=== PATIENT | male | born 1945 | race Caucasian/White ===

== ENCOUNTER 2020-02-08 12:32 | Inpatient (IN) ==
[2020-02-08] MEDS ORDERED: Naloxone 0.4 MG/ML INJ IVP PRN (19:43)
[2020-02-08] MEDS ORDERED: Ondansetron 4 MG/2 ML VIAL IVP PRN (19:43)
[2020-02-08] MEDS ORDERED: Ringers Solution, Lactated 1,000 ML IVC SCH (21:45)
[2020-02-08] MEDS: Acetaminophen 325 MG TABLET PO PRN (23:55)
[2020-02-09 02:35] LABS: Hematocrit 24.4 % (37.5-50.1); Hemoglobin 7.2 g/dL (12.9-16.9); Mean Corpuscular HGB Conc 29.5 g/dL (31.6-35.5); Mean Corpuscular Hemoglobin 28.6 pg (28.0-33.3); Mean Corpuscular Volume 96.8 fL (83.0-100.0); Mean Platelet Volume 10.9 fL (9.4-12.4); Platelet Count 139 K/mcL (140-400); Red Blood Count 2.52 M/mcL (4.19-5.50); Red Cell Distribution Width 16.9 % (11.5-14.5); White Blood Count 7.9 K/mcL (4.3-11.1)
[2020-02-09 02:42] LABS: INR 1.5; Prothrombin Time 17.5 Seconds (9.4-12.1)
[2020-02-09 03:00] LABS: BUN/Creatinine Ratio 15 (6-26); Blood Urea Nitrogen 16 mg/dL (8-23); Calcium 7.9 mg/dL (8.6-10.3); Carbon Dioxide 22 mEq/L (23-29); Chloride 102 mEq/L (98-107); Glucose 83 mg/dL (70-105); Magnesium 1.9 mg/dL (1.6-2.6); Osmolality,Calculated 282 (280-300); Sodium 136 mEq/L (136-145); eGFR For African Americans > 60 (> 60); eGFR For Non-African Americans > 60 (> 60)
[2020-02-09 03:28] LABS: Anisocytosis 1+ (Not Present); Lymphocytes # 1.4 K/mcL (0.6-4.6); Neutrophils # 5.2 K/mcL (1.6-8.9); Platelet Estimate Slight Decrease (Normal); Reactive Lymphocytes Present (Not Present)
[2020-02-09] MEDS: *HR* Enoxaparin 40 MG/0.4 ML SYRINGE SQ SCH (06:14)
[2020-02-09 07:53] LABS: Phosphorous 2.9 mg/dL (2.7-4.5)
[2020-02-09] MEDS ORDERED: amLODIPine 5 MG TABLET PO SCH (09:00)
[2020-02-09] MEDS: Finasteride 5 MG TABLET PO SCH (09:31)
[2020-02-09] MEDS: MESALAMINE 1.5 GM PO SCH (09:32)
[2020-02-09] MEDS ORDERED: Isovue-370 500 ML BOTTLE IVP ONE (10:21)
[2020-02-09] MEDS: Acetaminophen 325 MG TABLET PO PRN (13:14)
[2020-02-09] MEDS ORDERED: Piperacillin/Tazobactam 3.375 GM in 0.9 % Sodium Chloride Mini Bag 100 ML IVPB ONE (18:37)
[2020-02-09] MEDS ORDERED: 0.9 % Sodium Chloride w KCl 40 MEQ/1,000 ML MLS IVC SCH (18:45)
[2020-02-09] MEDS: Piperacillin/Tazobactam 3.375 GM in 0.9 % Sodium Chloride Mini Bag 100 ML IVPB SCH (23:44)
[2020-02-10] MEDS: Acetaminophen 325 MG TABLET PO PRN ×2 (04:35→16:15)
[2020-02-10 05:46] LABS: Hematocrit 22.8 % (37.5-50.1); Hemoglobin 6.8 g/dL (12.9-16.9); Mean Corpuscular HGB Conc 29.8 g/dL (31.6-35.5); Mean Corpuscular Hemoglobin 29.4 pg (28.0-33.3); Mean Corpuscular Volume 98.7 fL (83.0-100.0); Mean Platelet Volume 11.1 fL (9.4-12.4); Platelet Count 150 K/mcL (140-400); Red Blood Count 2.31 M/mcL (4.19-5.50); Red Cell Distribution Width 17.3 % (11.5-14.5); White Blood Count 10.2 K/mcL (4.3-11.1)
[2020-02-10] MEDS: *HR* Enoxaparin 40 MG/0.4 ML SYRINGE SQ SCH (05:53)
[2020-02-10 06:45] LABS: Potassium 4.5 mEq/L (3.5-5.1)
[2020-02-10 06:46] LABS: Alanine Aminotransferase 15 Units/L (7-52); Albumin 2.4 g/dL (3.5-5.7); Albumin/Globulin Ratio 0.6 (1.1-2.2); Alkaline Phosphatase 74 Units/L (34-104); Aspartate Amino Transferase 56 Units/L (13-39); BUN/Creatinine Ratio 16 (6-26); Bilirubin,Direct 0.2 mg/dL (0.0-0.2); Bilirubin,Indirect 0.4 mg/dL (0.0-1.0); Bilirubin,Total 0.6 mg/dL (0.3-1.0); Blood Urea Nitrogen 17 mg/dL (8-23); Calcium 8.2 mg/dL (8.6-10.3); Carbon Dioxide 22 mEq/L (23-29); Chloride 109 mEq/L (98-107); Globulin 3.7 g/dL (2.4-3.5); Glucose 84 mg/dL (70-105); Magnesium 2.2 mg/dL (1.6-2.6); Osmolality,Calculated 291 (280-300); Sodium 140 mEq/L (136-145); Total Protein 6.1 g/dL (6.4-8.9); eGFR For African Americans > 60 (> 60); eGFR For Non-African Americans > 60 (> 60)
[2020-02-10] MEDS: MESALAMINE 1.5 GM PO SCH (10:17)
[2020-02-10] MEDS: Finasteride 5 MG TABLET PO SCH (10:22)
[2020-02-10] MEDS: Piperacillin/Tazobactam 3.375 GM in 0.9 % Sodium Chloride Mini Bag 100 ML IVPB SCH ×2 (10:23→16:16)
[2020-02-10] MEDS ORDERED: 0.9 % Sodium Chloride 250 ML ONE (12:56)
[2020-02-11] MEDS: Piperacillin/Tazobactam 3.375 GM in 0.9 % Sodium Chloride Mini Bag 100 ML IVPB SCH ×3 (00:40→16:10)
[2020-02-11] MEDS ORDERED: *HR* Metoprolol 5 MG/5 ML VIAL IVP ONE (01:32)
[2020-02-11] MEDS: Acetaminophen 325 MG TABLET PO PRN (03:58)
[2020-02-11] MEDS: *HR* Enoxaparin 40 MG/0.4 ML SYRINGE SQ SCH (05:01)
[2020-02-11] MEDS: Finasteride 5 MG TABLET PO SCH (09:43)
[2020-02-11] MEDS: MESALAMINE 1.5 GM PO SCH (09:44)
[2020-02-11 10:38] LABS: Hematocrit 22.6 % (37.5-50.1); Hemoglobin 7.6 g/dL (12.9-16.9); Mean Corpuscular HGB Conc 33.6 g/dL (31.6-35.5); Mean Corpuscular Hemoglobin 33.2 pg (28.0-33.3); Mean Corpuscular Volume 98.7 fL (83.0-100.0); Mean Platelet Volume 11.6 fL (9.4-12.4); Platelet Count 142 K/mcL (140-400); Red Blood Count 2.29 M/mcL (4.19-5.50); Red Cell Distribution Width 23.3 % (11.5-14.5); White Blood Count 9.6 K/mcL (4.3-11.1)
[2020-02-11 10:57] LABS: BUN/Creatinine Ratio 21 (6-26); Blood Urea Nitrogen 22 mg/dL (8-23); Carbon Dioxide 20 mEq/L (23-29); Chloride 111 mEq/L (98-107); Glucose 111 mg/dL (70-105); Magnesium 2.1 mg/dL (1.6-2.6); Osmolality,Calculated 296 (280-300); Sodium 141 mEq/L (136-145); eGFR For African Americans > 60 (> 60); eGFR For Non-African Americans > 60 (> 60)
[2020-02-11] MEDS: Dexamethasone Sodium Phos/PF 10 MG/ML VIAL IVP SCH (22:09)
[2020-02-12] MEDS: Piperacillin/Tazobactam 3.375 GM in 0.9 % Sodium Chloride Mini Bag 100 ML IVPB SCH ×3 (09:50→15:36)
[2020-02-12] MEDS: Dexamethasone Sodium Phos/PF 10 MG/ML VIAL IVP SCH (09:51)
[2020-02-12] MEDS: *HR* Enoxaparin 40 MG/0.4 ML SYRINGE SQ SCH (09:52)
[2020-02-12] MEDS: MESALAMINE 1.5 GM PO SCH (09:52)
[2020-02-12] MEDS: Finasteride 5 MG TABLET PO SCH (09:52)
[2020-02-12] MEDS ORDERED: Isovue-370 500 ML BOTTLE IVP ONE (09:59)
[2020-02-13] MEDS: Piperacillin/Tazobactam 3.375 GM in 0.9 % Sodium Chloride Mini Bag 100 ML IVPB SCH ×3 (01:11→17:57)
[2020-02-13] MEDS: *HR* Enoxaparin 40 MG/0.4 ML SYRINGE SQ SCH (06:04)
[2020-02-13] MEDS: Dexamethasone Sodium Phos/PF 10 MG/ML VIAL IVP SCH (08:52)
[2020-02-13] MEDS: Finasteride 5 MG TABLET PO SCH (08:52)
[2020-02-13] MEDS: MESALAMINE 1.5 GM PO SCH (08:55)
[2020-02-13 10:07] LABS: Albumin 2.6 g/dL (3.5-5.7); Albumin/Globulin Ratio 0.6 (1.1-2.2); Bilirubin,Direct 0.3 mg/dL (0.0-0.2); Bilirubin,Total 1.3 mg/dL (0.3-1.0); Calcium 8.5 mg/dL (8.6-10.3); Globulin 4.1 g/dL (2.4-3.5); Magnesium 2.6 mg/dL (1.6-2.6); Potassium 4.3 mEq/L (3.5-5.1); Total Protein 6.7 g/dL (6.4-8.9)
[2020-02-13 10:42] LABS: Hematocrit 23.5 % (37.5-50.1); Hemoglobin 7.1 g/dL (12.9-16.9); Mean Corpuscular HGB Conc 30.2 g/dL (31.6-35.5); Mean Platelet Volume 11.8 fL (9.4-12.4); Platelet Count 219 K/mcL (140-400); Red Blood Count 2.47 M/mcL (4.19-5.50); Red Cell Distribution Width 19.7 % (11.5-14.5); White Blood Count 7.9 K/mcL (4.3-11.1)
[2020-02-13 10:43] LABS: Mean Corpuscular Volume 95.1 fL (83.0-100.0)
[2020-02-13 10:47] LABS: Mean Corpuscular Hemoglobin 28.7 pg (28.0-33.3)
[2020-02-13] MEDS ORDERED: Ringers Solution, Lactated 1,000 ML IVC ONE (12:04)
[2020-02-13] MEDS ORDERED: MESALAMINE 1.5 GM PO SCH (13:15)
[2020-02-14] MEDS: Piperacillin/Tazobactam 3.375 GM in 0.9 % Sodium Chloride Mini Bag 100 ML IVPB SCH ×3 (03:20→20:35)
[2020-02-14] MEDS ORDERED: *HR* Enoxaparin 30 MG/0.3 ML SYRINGE SQ SCH (06:00)
[2020-02-14] MEDS ORDERED: Ringers Solution, Lactated 1,000 ML IVC ONE (07:47)
[2020-02-14] MEDS: Dexamethasone Sodium Phos/PF 10 MG/ML VIAL IVP SCH (08:48)
[2020-02-14] MEDS: Finasteride 5 MG TABLET PO SCH (08:48)
[2020-02-14 08:57] LABS: Calcium 8.6 mg/dL (8.6-10.3); Magnesium 2.7 mg/dL (1.6-2.6); Potassium 4.5 mEq/L (3.5-5.1)
[2020-02-14 11:59] LABS: Hematocrit 19.9 % (37.5-50.1); Mean Corpuscular HGB Conc 29.1 g/dL (31.6-35.5); Mean Corpuscular Volume 96.6 fL (83.0-100.0); Mean Platelet Volume 12.4 fL (9.4-12.4); Platelet Count 190 K/mcL (140-400); Red Blood Count 2.06 M/mcL (4.19-5.50); Red Cell Distribution Width 19.3 % (11.5-14.5); White Blood Count 7.1 K/mcL (4.3-11.1)
[2020-02-14 12:00] LABS: Mean Corpuscular Hemoglobin 28.2 pg (28.0-33.3)
[2020-02-14 12:04] LABS: Hemoglobin 5.8 g/dL (12.9-16.9)
[2020-02-14] MEDS ORDERED: 0.9 % Sodium Chloride 250 ML ONE ×3 (13:20→22:18)
[2020-02-14] MEDS ORDERED: Pantoprazole 40 MG VIAL IVP ONE (15:13)
[2020-02-14] MEDS: Pantoprazole 40 MG VIAL IVP SCH (20:34)
[2020-02-14 21:00] LABS: Hematocrit 23.5 % (37.5-50.1)
[2020-02-14 21:05] LABS: Hemoglobin 9.3 g/dL (12.9-16.9)
[2020-02-14 21:15] LABS: Calcium 8.5 mg/dL (8.6-10.3); Potassium 4.5 mEq/L (3.5-5.1)
[2020-02-15 03:45] LABS: Calcium 8.2 mg/dL (8.6-10.3); Magnesium 2.5 mg/dL (1.6-2.6); Potassium 4.3 mEq/L (3.5-5.1)
[2020-02-15] MEDS: Piperacillin/Tazobactam 3.375 GM in 0.9 % Sodium Chloride Mini Bag 100 ML IVPB SCH ×3 (04:20→20:33)
[2020-02-15 05:04] LABS: Hematocrit 32.8 % (37.5-50.1); Hemoglobin 10.2 g/dL (12.9-16.9); Mean Corpuscular HGB Conc 31.1 g/dL (31.6-35.5); Mean Corpuscular Hemoglobin 28.2 pg (28.0-33.3); Mean Corpuscular Volume 90.6 fL (83.0-100.0); Mean Platelet Volume 12.1 fL (9.4-12.4); Platelet Count 153 K/mcL (140-400); Red Blood Count 3.62 M/mcL (4.19-5.50); Red Cell Distribution Width 17.3 % (11.5-14.5); White Blood Count 6.2 K/mcL (4.3-11.1)
[2020-02-15] MEDS: Pantoprazole 40 MG VIAL IVP SCH ×2 (08:23→20:32)
[2020-02-15] MEDS: Dexamethasone Sodium Phos/PF 10 MG/ML VIAL IVP SCH (08:24)
[2020-02-15] MEDS: Finasteride 5 MG TABLET PO SCH (10:40)
[2020-02-16] MEDS: Piperacillin/Tazobactam 3.375 GM in 0.9 % Sodium Chloride Mini Bag 100 ML IVPB SCH ×3 (03:43→20:40)
[2020-02-16 06:48] LABS: Alanine Aminotransferase 17 Units/L (7-52); Albumin 2.6 g/dL (3.5-5.7); Albumin/Globulin Ratio 0.8 (1.1-2.2); Alkaline Phosphatase 89 Units/L (34-104); Aspartate Amino Transferase 40 Units/L (13-39); BUN/Creatinine Ratio 39 (6-26); Blood Urea Nitrogen 53 mg/dL (8-23); Calcium 8.7 mg/dL (8.6-10.3); Carbon Dioxide 23 mEq/L (23-29); Chloride 118 mEq/L (98-107); Globulin 3.4 g/dL (2.4-3.5); Glucose 119 mg/dL (70-105); Lactate Dehydrogenase 534 Units/L (140-271); Osmolality,Calculated 322 (280-300); Potassium 4.2 mEq/L (3.5-5.1); Sodium 148 mEq/L (136-145); eGFR For African Americans > 60 (> 60); eGFR For Non-African Americans 52 (> 60)
[2020-02-16 08:13] LABS: Hematocrit 29.8 % (37.5-50.1); Hemoglobin 9.7 g/dL (12.9-16.9); Mean Corpuscular HGB Conc 32.6 g/dL (31.6-35.5); Mean Corpuscular Hemoglobin 28.8 pg (28.0-33.3); Mean Corpuscular Volume 88.4 fL (83.0-100.0); Mean Platelet Volume 11.6 fL (9.4-12.4); Nucleated Red Blood Cells 1.5 /100 WBC (0); Platelet Count 127 K/mcL (140-400); Red Blood Count 3.37 M/mcL (4.19-5.50); Red Cell Distribution Width 17.6 % (11.5-14.5); White Blood Count 5.8 K/mcL (4.3-11.1)
[2020-02-16 08:15] LABS: Lymphocytes # 0.8 K/mcL (0.6-4.6); Monocytes # 0.5 K/mcL (0.0-1.3); Neutrophils # 4.5 K/mcL (1.6-8.9); Platelet Estimate Slight Decrease (Normal)
[2020-02-16] MEDS: Pantoprazole 40 MG VIAL IVP SCH ×2 (09:25→20:39)
[2020-02-16] MEDS: Dexamethasone Sodium Phos/PF 10 MG/ML VIAL IVP SCH (09:25)
[2020-02-16] MEDS: Finasteride 5 MG TABLET PO SCH (09:25)
[2020-02-16 09:37] LABS: C-Reactive Protein 55 mg/L (Less than 10); Ferritin > 1500 ng/mL (20-250)
[2020-02-17] MEDS: Piperacillin/Tazobactam 3.375 GM in 0.9 % Sodium Chloride Mini Bag 100 ML IVPB SCH ×3 (03:59→19:48)
[2020-02-17 07:54] LABS: Immature Platelets 13.6 % (1.1-6.1); Mean Platelet Volume 12.5 fL (9.4-12.4); Segmented Neutrophils % 66.8 %
[2020-02-17 08:06] LABS: Alanine Aminotransferase 19 Units/L (7-52); Albumin 2.7 g/dL (3.5-5.7); Albumin/Globulin Ratio 0.7 (1.1-2.2); Alkaline Phosphatase 100 Units/L (34-104); Aspartate Amino Transferase 37 Units/L (13-39); BUN/Creatinine Ratio 35 (6-26); Blood Urea Nitrogen 41 mg/dL (8-23); Calcium 8.9 mg/dL (8.6-10.3); Carbon Dioxide 27 mEq/L (23-29); Chloride 115 mEq/L (98-107); Globulin 3.7 g/dL (2.4-3.5); Glucose 117 mg/dL (70-105); Lactate Dehydrogenase 507 Units/L (140-271); Osmolality,Calculated 317 (280-300); Potassium 3.9 mEq/L (3.5-5.1); Sodium 148 mEq/L (136-145); Total Protein 6.4 g/dL (6.4-8.9); eGFR For African Americans > 60 (> 60); eGFR For Non-African Americans > 60 (> 60)
[2020-02-17] MEDS: Dexamethasone Sodium Phos/PF 10 MG/ML VIAL IVP SCH (08:38)
[2020-02-17] MEDS: Pantoprazole 40 MG VIAL IVP SCH ×2 (08:39→19:49)
[2020-02-17] MEDS: Finasteride 5 MG TABLET PO SCH (08:39)
[2020-02-17 09:00] LABS: Basophils % 0.3 %; Hematocrit 32.2 % (37.5-50.1); Hemoglobin 10.2 g/dL (12.9-16.9); Immature Granulocytes % 7.1 % (0-4); Lymphocytes # 0.6 K/mcL (0.6-4.6); Lymphocytes % 10.8 %; Mean Corpuscular Hemoglobin 28.8 pg (28.0-33.3); Monocytes # 0.9 K/mcL (0.0-1.3); Nucleated Red Blood Cells 1.2 /100 WBC (0); Platelet Count 123 K/mcL (140-400); Red Blood Count 3.54 M/mcL (4.19-5.50); Red Cell Distribution Width 17.3 % (11.5-14.5); White Blood Count 5.8 K/mcL (4.3-11.1)
[2020-02-17 09:04] LABS: Neutrophils # 3.9 K/mcL (1.6-8.9)
[2020-02-17 09:05] LABS: Mean Corpuscular HGB Conc 31.7 g/dL (31.6-35.5)
[2020-02-17 09:42] LABS: Platelet Estimate Normal (Normal)
[2020-02-17 09:43] LABS: Anisocytosis 1+ (Not Present)
[2020-02-17 12:32] LABS: C-Reactive Protein 48 mg/L (Less than 10); Ferritin > 1500 ng/mL (20-250)
[2020-02-17] MEDS ORDERED: D5% in Water 500 ML IVC SCH (13:45)
[2020-02-17 19:37] VITALS: BP 144/97
== END 2020-02-17 20:37 | DRG 871 ==
LOC: 2NENU → SUATTDRO 18:15 → 2NENU 02-13 00:49
PROVIDERS: ADMIT Internal Medicine; ATTEND Family Medicine

== ENCOUNTER 2020-03-12 21:21 | Inpatient (IN) ==
[2020-03-13 05:52] LABS: White Blood Count 2.9 K/mcL (4.3-11.1)
[2020-03-13 05:53] LABS: Activated Partial Thrombo Time 29.3 Seconds (26.0-36.0); INR 1.3
[2020-03-13 05:54] LABS: Eosinophils % 0.3 %; Hematocrit 27.8 % (37.5-50.1); Hemoglobin 8.8 g/dL (12.9-16.9); Immature Granulocytes % 0.7 % (0-4); Immature Platelets 8.2 % (1.1-6.1); Lymphocytes # 1.1 K/mcL (0.6-4.6); Lymphocytes % 38.3 %; Mean Corpuscular HGB Conc 31.7 g/dL (31.6-35.5); Mean Corpuscular Hemoglobin 28.9 pg (28.0-33.3); Mean Corpuscular Volume 91.4 fL (83.0-100.0); Mean Platelet Volume 11.9 fL (9.4-12.4); Monocytes # 0.8 K/mcL (0.0-1.3); Monocytes % 26.1 %; Red Blood Count 3.04 M/mcL (4.19-5.50); Red Cell Distribution Width 19.4 % (11.5-14.5); Segmented Neutrophils % 34.6 %
[2020-03-13 05:57] LABS: Platelet Count 96 K/mcL (140-400)
[2020-03-13 09:50] LABS: Alanine Aminotransferase 15 Units/L (7-52); Albumin 3.1 g/dL (3.5-5.7); Albumin/Globulin Ratio 0.9 (1.1-2.2); Alkaline Phosphatase 96 Units/L (34-104); Aspartate Amino Transferase 15 Units/L (13-39); BUN/Creatinine Ratio 10 (6-26); Bilirubin,Total 0.6 mg/dL (0.3-1.0); Blood Urea Nitrogen 7 mg/dL (8-23); Calcium 8.6 mg/dL (8.6-10.3); Carbon Dioxide 24 mEq/L (23-29); Chloride 102 mEq/L (98-107); Globulin 3.4 g/dL (2.4-3.5); Glucose 86 mg/dL (70-105); Osmolality,Calculated 273 (280-300); Potassium 5.1 mEq/L (3.5-5.1); Sodium 133 mEq/L (136-145); Total Protein 6.5 g/dL (6.4-8.9); eGFR For African Americans > 60 (> 60); eGFR For Non-African Americans > 60 (> 60)
[2020-03-13] MEDS: Piperacillin/Tazobactam 3.375 GM in 0.9 % Sodium Chloride Mini Bag 100 ML IVPB SCH ×2 (10:31→17:06)
[2020-03-13] MEDS: 0.9 % Sodium Chloride 1,000 ML IVC SCH ×2 (10:31→21:01)
[2020-03-13] MEDS ORDERED: Ondansetron 4 MG/2 ML VIAL IVP PRN (10:49)
[2020-03-13 12:13] LABS: Magnesium 1.7 mg/dL (1.6-2.6); Phosphorous 1.7 mg/dL (2.7-4.5); Triglycerides 106 mg/dL (< 150)
[2020-03-13] MEDS ORDERED: *HR* Dextrose 50 % in Water (Vial) 50 ML VIAL IVP PRN (12:43)
[2020-03-13] MEDS ORDERED: D5% in Water 1,000 ML IVC PRN (12:43)
[2020-03-13] MEDS ORDERED: Dextrose Gel 15 GM/37.5 ML TUBE PO PRN ×2 (12:43)
[2020-03-13] MEDS ORDERED: D10% in Water 500 ML IVC PRN (12:50)
[2020-03-13] MEDS ORDERED: Lidocaine -MPF 1% 5 ML AMPUL INFILT ONE (12:53)
[2020-03-13] MEDS: Insulin LISPRO 300 UNITS/3 ML VIAL SUBQ SCH ×3 (13:54→21:33)
[2020-03-13] MEDS ORDERED: Clinimix E 5%-15% SOLUTION 2,000 ML IVC SCH (17:00)
[2020-03-14] MEDS: Insulin LISPRO 300 UNITS/3 ML VIAL SUBQ SCH ×6 (00:27→22:10)
[2020-03-14] MEDS: Piperacillin/Tazobactam 3.375 GM in 0.9 % Sodium Chloride Mini Bag 100 ML IVPB SCH ×3 (01:42→17:41)
[2020-03-14 05:01] LABS: Eosinophils % 0.3 %; Hemoglobin 7.4 g/dL (12.9-16.9)
[2020-03-14 05:02] LABS: Immature Platelets 6.3 % (1.1-6.1)
[2020-03-14 05:25] LABS: Hematocrit 23.2 % (37.5-50.1); Immature Granulocytes % 4.9 % (0-4); Lymphocytes # 1.1 K/mcL (0.6-4.6); Lymphocytes % 33.1 %; Mean Corpuscular HGB Conc 31.9 g/dL (31.6-35.5); Mean Corpuscular Hemoglobin 28.9 pg (28.0-33.3); Mean Corpuscular Volume 90.6 fL (83.0-100.0); Monocytes % 29.5 %; Neutrophils # 1.1 K/mcL (1.6-8.9); Nucleated Red Blood Cells 0.6 /100 WBC (0); Red Blood Count 2.56 M/mcL (4.19-5.50); Red Cell Distribution Width 19.6 % (11.5-14.5); Segmented Neutrophils % 32.2 %; White Blood Count 3.3 K/mcL (4.3-11.1)
[2020-03-14 05:28] LABS: Platelet Count 90 K/mcL (140-400)
[2020-03-14 05:39] LABS: Alanine Aminotransferase 13 Units/L (7-52); Albumin 2.7 g/dL (3.5-5.7); Albumin/Globulin Ratio 0.9 (1.1-2.2); Alkaline Phosphatase 81 Units/L (34-104); Aspartate Amino Transferase 10 Units/L (13-39); BUN/Creatinine Ratio 17 (6-26); Bilirubin,Total 0.5 mg/dL (0.3-1.0); Blood Urea Nitrogen 11 mg/dL (8-23); Calcium 7.9 mg/dL (8.6-10.3); Carbon Dioxide 22 mEq/L (23-29); Chloride 107 mEq/L (98-107); Glucose 93 mg/dL (70-105); Magnesium 1.5 mg/dL (1.6-2.6); Osmolality,Calculated 281 (280-300); Phosphorous 3.2 mg/dL (2.7-4.5); Potassium 3.8 mEq/L (3.5-5.1); Sodium 136 mEq/L (136-145); Total Protein 5.7 g/dL (6.4-8.9); eGFR For African Americans > 60 (> 60); eGFR For Non-African Americans > 60 (> 60)
[2020-03-14 05:51] LABS: Anisocytosis 1+ (Not Present); Macrocytosis Present (Not Present); Platelet Estimate Decreased (Normal)
[2020-03-14] MEDS: 0.9 % Sodium Chloride 1,000 ML IVC SCH ×2 (07:41→16:40)
[2020-03-14] MEDS: Finasteride 5 MG TABLET PO SCH (10:45)
[2020-03-14] MEDS: Mesalamine 250 MG CAPSULE.ER PO SCH (10:45)
[2020-03-14] MEDS: amLODIPine 5 MG TABLET PO SCH (10:45)
[2020-03-14] MEDS: lisinopriL 20 MG TABLET PO SCH (10:46)
[2020-03-14] MEDS ORDERED: Clinimix E 5%-15% SOLUTION 2,000 ML with MVI, adult with vitamin K 10 ML IVC SCH (17:00)
[2020-03-14] MEDS ORDERED: 0.9 % Sodium Chloride 1,000 ML IVC SCH (17:20)
[2020-03-15] MEDS: Insulin LISPRO 300 UNITS/3 ML VIAL SUBQ SCH ×6 (01:18→21:24)
[2020-03-15] MEDS: Piperacillin/Tazobactam 3.375 GM in 0.9 % Sodium Chloride Mini Bag 100 ML IVPB SCH ×3 (02:10→18:05)
[2020-03-15 05:32] LABS: BUN/Creatinine Ratio 30 (6-26); Blood Urea Nitrogen 18 mg/dL (8-23); Calcium 8.2 mg/dL (8.6-10.3); Carbon Dioxide 24 mEq/L (23-29); Chloride 105 mEq/L (98-107); Glucose 93 mg/dL (70-105); Magnesium 2.1 mg/dL (1.6-2.6); Osmolality,Calculated 284 (280-300); Phosphorous 2.9 mg/dL (2.7-4.5); Potassium 3.2 mEq/L (3.5-5.1); Sodium 136 mEq/L (136-145); eGFR For African Americans > 60 (> 60); eGFR For Non-African Americans > 60 (> 60)
[2020-03-15 08:54] LABS: Eosinophils % 0.5 %; Hematocrit 22.7 % (37.5-50.1); Immature Granulocytes % 1.8 % (0-4); Immature Platelets 6.8 % (1.1-6.1); Lymphocytes # 1.1 K/mcL (0.6-4.6); Lymphocytes % 28.4 %; Mean Corpuscular HGB Conc 30.8 g/dL (31.6-35.5); Mean Corpuscular Hemoglobin 28.7 pg (28.0-33.3); Mean Platelet Volume 12.2 fL (9.4-12.4); Monocytes % 26.3 %; Neutrophils # 1.7 K/mcL (1.6-8.9); Nucleated Red Blood Cells 0.5 /100 WBC (0); Red Blood Count 2.44 M/mcL (4.19-5.50); Red Cell Distribution Width 19.8 % (11.5-14.5); White Blood Count 3.9 K/mcL (4.3-11.1)
[2020-03-15 09:00] LABS: Platelet Count 78 K/mcL (140-400)
[2020-03-15 09:20] LABS: Platelet Estimate Decreased (Normal)
[2020-03-15 09:21] LABS: Anisocytosis 1+ (Not Present); Large Platelets Present (Not Present)
[2020-03-15] MEDS: Mesalamine 250 MG CAPSULE.ER PO SCH (11:08)
[2020-03-15] MEDS: amLODIPine 5 MG TABLET PO SCH ×2 (11:08→18:00)
[2020-03-15] MEDS: lisinopriL 20 MG TABLET PO SCH ×2 (11:08→18:00)
[2020-03-15] MEDS: Finasteride 5 MG TABLET PO SCH ×2 (11:08→18:00)
[2020-03-15] MEDS ORDERED: 0.9 % Sodium Chloride 250 ML IVC SCH (12:15)
[2020-03-15] MEDS ORDERED: Clinimix E 5%-15% SOLUTION 2,000 ML IVC SCH (17:00)
[2020-03-15] MEDS: Pantoprazole 40 MG VIAL IVP SCH (18:04)
[2020-03-15] MEDS ORDERED: 0.9 % Sodium Chloride 250 ML ONE (18:49)
[2020-03-16] MEDS: Insulin LISPRO 300 UNITS/3 ML VIAL SUBQ SCH ×7 (01:39→23:37)
[2020-03-16] MEDS ORDERED: Piperacillin/Tazobactam 3.375 GM VIAL ONE (01:40)
[2020-03-16] MEDS: Piperacillin/Tazobactam 3.375 GM in 0.9 % Sodium Chloride Mini Bag 100 ML IVPB SCH ×4 (01:50→20:13)
[2020-03-16 05:02] LABS: Monocytes % 29.7 %
[2020-03-16 05:04] LABS: Basophils % 0.2 %; Eosinophils % 0.3 %; Hematocrit 29.3 % (37.5-50.1); Hemoglobin 9.5 g/dL (12.9-16.9); Immature Granulocytes % 1.6 % (0-4); Immature Platelets 8.2 % (1.1-6.1); Lymphocytes % 18.2 %; Mean Corpuscular HGB Conc 32.4 g/dL (31.6-35.5); Mean Corpuscular Hemoglobin 29.3 pg (28.0-33.3); Mean Corpuscular Volume 90.4 fL (83.0-100.0); Monocytes # 1.7 K/mcL (0.0-1.3); Neutrophils # 2.9 K/mcL (1.6-8.9); Red Blood Count 3.24 M/mcL (4.19-5.50); Red Cell Distribution Width 17.2 % (11.5-14.5); White Blood Count 5.7 K/mcL (4.3-11.1)
[2020-03-16 05:16] LABS: Platelet Count 67 K/mcL (140-400)
[2020-03-16 05:20] LABS: BUN/Creatinine Ratio 40 (6-26); Blood Urea Nitrogen 22 mg/dL (8-23); Calcium 8.1 mg/dL (8.6-10.3); Carbon Dioxide 22 mEq/L (23-29); Chloride 109 mEq/L (98-107); Glucose 77 mg/dL (70-105); Magnesium 1.8 mg/dL (1.6-2.6); Osmolality,Calculated 286 (280-300); Potassium 3.3 mEq/L (3.5-5.1); Sodium 137 mEq/L (136-145); eGFR For African Americans > 60 (> 60); eGFR For Non-African Americans > 60 (> 60)
[2020-03-16 05:33] LABS: Platelet Estimate Decreased (Normal)
[2020-03-16 05:34] LABS: Anisocytosis 1+ (Not Present)
[2020-03-16] MEDS: Pantoprazole 40 MG VIAL IVP SCH ×2 (05:52→17:38)
[2020-03-16] MEDS ORDERED: Potassium Phosphate 44 MEQ in 0.9 % Sodium Chloride 250 ML IVPB ONE (07:52)
[2020-03-16] MEDS: Mesalamine 250 MG CAPSULE.ER PO SCH (08:55)
[2020-03-16] MEDS: lisinopriL 20 MG TABLET PO SCH (08:55)
[2020-03-16] MEDS: amLODIPine 5 MG TABLET PO SCH (08:55)
[2020-03-16] MEDS: Finasteride 5 MG TABLET PO SCH (08:55)
[2020-03-16] MEDS ORDERED: Lidocaine HCL 4 ML Topical Solution (Laryng-O-Jet Kit Sterile Pak) TP ONE (11:39)
[2020-03-16] MEDS ORDERED: *HR* FentaNYL (PF) 100 MCG/2 ML VIAL ONE (11:39)
[2020-03-16] MEDS ORDERED: *HR* Propofol 200 MG/20 ML VIAL IVP ONE (11:40)
[2020-03-16] MEDS ORDERED: *HR* HYDROmorphone (PF) 1 MG/ML SYRINGE IVP PRN (11:44)
[2020-03-16] MEDS ORDERED: Ondansetron 4 MG/2 ML VIAL IVP PRN ×2 (11:44→14:47)
[2020-03-16] MEDS ORDERED: *HR* Labetalol 20 MG/4 ML SYRINGE IVP PRN (11:44)
[2020-03-16] MEDS ORDERED: *HR* OxyCODONE Immed Rel 5 MG TABLET PO PRN (11:44)
[2020-03-16] MEDS ORDERED: Albumin Human 5% 12.5 GM/250 ML IV.SOLN ONE (11:50)
[2020-03-16] MEDS ORDERED: Acetaminophen IV 1,000 MG/100 ML BAG IVPB ONE (11:50)
[2020-03-16] MEDS ORDERED: Ondansetron 4 MG/2 ML VIAL ONE (12:41)
[2020-03-16] MEDS ORDERED: EPHEDrine 50 MG/ML VIAL ONE (12:46)
[2020-03-16] MEDS ORDERED: *HR* Phenylephrine 10 MG/ML VIAL ONE (13:17)
[2020-03-16] MEDS ORDERED: Sugammadex Sodium 200 MG/2 ML VIAL IV ONE (13:42)
[2020-03-16] MEDS ORDERED: Dextrose Gel 15 GM/37.5 ML TUBE PO PRN ×2 (14:47)
[2020-03-16] MEDS ORDERED: D10% in Water 500 ML IVC PRN (14:47)
[2020-03-16] MEDS ORDERED: Clinimix E 5%-15% SOLUTION 2,000 ML IVC SCH (14:47)
[2020-03-16] MEDS ORDERED: D5% in Water 1,000 ML IVC PRN (14:47)
[2020-03-16] MEDS ORDERED: *HR* Dextrose 50 % in Water (Vial) 50 ML VIAL IVP PRN (14:47)
[2020-03-16] MEDS ORDERED: 0.9 % Sodium Chloride 250 ML IVC SCH (14:47)
[2020-03-16] MEDS ORDERED: Clinimix E 5%-15% SOLUTION 2,000 ML with MVI, adult with vitamin K 10 ML IVC SCH ×2 (17:00)
[2020-03-16] MEDS ORDERED: 0.9 % Sodium Chloride 1,000 ML IV ONE (17:06)
[2020-03-16] MEDS ORDERED: Piperacillin/Tazobactam 3.375 GM in 0.9 % Sodium Chloride Mini Bag 100 ML IVPB SCH ×2 (18:00→21:00)
[2020-03-16] MEDS ORDERED: Ringers Solution, Lactated 1,000 ML IVC SCH (18:45)
[2020-03-16] MEDS ORDERED: 0.9 % Sodium Chloride 1,000 ML ONE (19:03)
[2020-03-16 19:05] LABS: Hematocrit 21.4 % (37.5-50.1); Hemoglobin 7.6 g/dL (12.9-16.9); Immature Granulocytes % 1.7 % (0-4); Immature Platelets 6.9 % (1.1-6.1); Lymphocytes # 0.3 K/mcL (0.6-4.6); Mean Corpuscular HGB Conc 35.5 g/dL (31.6-35.5); Mean Corpuscular Hemoglobin 32.9 pg (28.0-33.3); Mean Corpuscular Volume 92.6 fL (83.0-100.0); Mean Platelet Volume 12.3 fL (9.4-12.4); Monocytes # 0.3 K/mcL (0.0-1.3); Nucleated Red Blood Cells 0.7 /100 WBC (0); Red Blood Count 2.31 M/mcL (4.19-5.50); Red Cell Distribution Width 17.9 % (11.5-14.5); Segmented Neutrophils % 78.3 %
[2020-03-16 19:07] LABS: Neutrophils # 2.4 K/mcL (1.6-8.9); Platelet Count 74 K/mcL (140-400)
[2020-03-16 19:26] LABS: Platelet Estimate Decreased (Normal)
[2020-03-16] MEDS ORDERED: Isovue-370 500 ML BOTTLE IVP ONE (19:49)
[2020-03-16] MEDS ORDERED: Norepinephrine 4 MG/254 ML IV.SOLN IVC SCH (20:30)
[2020-03-17 00:06] LABS: Hematocrit 19.5 % (37.5-50.1); Hemoglobin 6.3 g/dL (12.9-16.9)
[2020-03-17] MEDS ORDERED: 0.9 % Sodium Chloride 250 ML IVC SCH (00:30)
[2020-03-17] MEDS ORDERED: Naloxone 0.4 MG/ML INJ IVP PRN ×2 (03:02→13:00)
[2020-03-17 04:51] LABS: BUN/Creatinine Ratio 40 (6-26); Blood Urea Nitrogen 38 mg/dL (8-23); Calcium 7.6 mg/dL (8.6-10.3); Carbon Dioxide 16 mEq/L (23-29); Chloride 110 mEq/L (98-107); Glucose 240 mg/dL (70-105); Magnesium 1.4 mg/dL (1.6-2.6); Osmolality,Calculated 295 (280-300); Phosphorous 3.7 mg/dL (2.7-4.5); Potassium 3.5 mEq/L (3.5-5.1); Sodium 134 mEq/L (136-145); eGFR For African Americans > 60 (> 60); eGFR For Non-African Americans > 60 (> 60)
[2020-03-17] MEDS: Piperacillin/Tazobactam 3.375 GM in 0.9 % Sodium Chloride Mini Bag 100 ML IVPB SCH ×3 (05:16→19:23)
[2020-03-17] MEDS: Insulin LISPRO 300 UNITS/3 ML VIAL SUBQ SCH ×5 (05:16→19:25)
[2020-03-17] MEDS: Pantoprazole 40 MG VIAL IVP SCH ×2 (05:16→17:13)
[2020-03-17] MEDS ORDERED: Acetaminophen IV 1,000 MG/100 ML BAG IVPB SCH (06:00)
[2020-03-17] MEDS: Potassium Chloride 40 MEQ/200 ML BAG IVPB PRN ×2 (06:04→07:35)
[2020-03-17] MEDS ORDERED: 0.9 % Sodium Chloride 1,000 ML IVC SCH (06:45)
[2020-03-17] MEDS ORDERED: Mesalamine 250 MG CAPSULE.ER PO SCH (09:00)
[2020-03-17] MEDS ORDERED: amLODIPine 5 MG TABLET PO SCH (09:00)
[2020-03-17] MEDS ORDERED: Finasteride 5 MG TABLET PO SCH (09:00)
[2020-03-17] MEDS ORDERED: lisinopriL 20 MG TABLET PO SCH (09:00)
[2020-03-17] MEDS ORDERED: Potassium Chloride 40 MEQ/200 ML BAG IVPB PRN (13:00)
[2020-03-17] MEDS ORDERED: D10% in Water 500 ML IVC PRN (13:00)
[2020-03-17] MEDS ORDERED: Dextrose Gel 15 GM/37.5 ML TUBE PO PRN ×2 (13:00)
[2020-03-17] MEDS ORDERED: Clinimix E 5%-15% SOLUTION 2,000 ML with MVI, adult with vitamin K 10 ML IVC SCH (13:00)
[2020-03-17 13:07] LABS: Basophils % 0.1 %; Nucleated Red Blood Cells 0.1 /100 WBC (0); Red Cell Distribution Width 15.4 % (11.5-14.5)
[2020-03-17 13:09] LABS: Hematocrit 24.8 % (37.5-50.1); Hemoglobin 8.3 g/dL (12.9-16.9); Immature Granulocytes % 3.9 % (0-4); Immature Platelets 10.5 % (1.1-6.1); Lymphocytes # 0.6 K/mcL (0.6-4.6); Lymphocytes % 2.8 %; Mean Corpuscular HGB Conc 33.5 g/dL (31.6-35.5); Mean Corpuscular Hemoglobin 28.5 pg (28.0-33.3); Mean Corpuscular Volume 85.2 fL (83.0-100.0); Mean Platelet Volume 12.9 fL (9.4-12.4); Monocytes # 4.4 K/mcL (0.0-1.3); Monocytes % 21.4 %; Neutrophils # 14.7 K/mcL (1.6-8.9); Red Blood Count 2.91 M/mcL (4.19-5.50); Segmented Neutrophils % 71.8 %; White Blood Count 20.5 K/mcL (4.3-11.1)
[2020-03-17 13:10] LABS: Platelet Count 56 K/mcL (140-400)
[2020-03-17 13:14] LABS: Platelet Estimate Decreased (Normal)
[2020-03-17] MEDS ORDERED: Clinimix E 5%-15% SOLUTION 2,000 ML IVC SCH ×3 (17:00)
[2020-03-17] MEDS: Acetaminophen IV 1,000 MG/100 ML BAG IVPB SCH (17:14)
[2020-03-18] MEDS: Insulin LISPRO 300 UNITS/3 ML VIAL SUBQ SCH ×7 (02:26→23:42)
[2020-03-18] MEDS: Acetaminophen IV 1,000 MG/100 ML BAG IVPB SCH ×5 (02:31→23:41)
[2020-03-18 03:34] LABS: Hematocrit 21.1 % (37.5-50.1); Hemoglobin 7.3 g/dL (12.9-16.9); Immature Platelets 8.1 % (1.1-6.1); Mean Corpuscular HGB Conc 34.6 g/dL (31.6-35.5); Mean Corpuscular Hemoglobin 29.7 pg (28.0-33.3); Mean Corpuscular Volume 85.8 fL (83.0-100.0); Mean Platelet Volume 12.3 fL (9.4-12.4); Red Blood Count 2.46 M/mcL (4.19-5.50); Red Cell Distribution Width 16.8 % (11.5-14.5); White Blood Count 23.2 K/mcL (4.3-11.1)
[2020-03-18 03:57] LABS: BUN/Creatinine Ratio 42 (6-26); Blood Urea Nitrogen 36 mg/dL (8-23); Calcium 8.5 mg/dL (8.6-10.3); Carbon Dioxide 19 mEq/L (23-29); Chloride 110 mEq/L (98-107); Glucose 171 mg/dL (70-105); Osmolality,Calculated 290 (280-300); Potassium 4.7 mEq/L (3.5-5.1); Sodium 134 mEq/L (136-145); eGFR For African Americans > 60 (> 60); eGFR For Non-African Americans > 60 (> 60)
[2020-03-18] MEDS: Piperacillin/Tazobactam 3.375 GM in 0.9 % Sodium Chloride Mini Bag 100 ML IVPB SCH ×3 (05:34→20:10)
[2020-03-18] MEDS: Pantoprazole 40 MG VIAL IVP SCH (05:34)
[2020-03-18] MEDS: Finasteride 5 MG TABLET PO SCH (08:09)
[2020-03-18] MEDS: lisinopriL 20 MG TABLET PO SCH (08:10)
[2020-03-18 08:38] LABS: Hematocrit 21.5 % (37.5-50.1); Hemoglobin 7.2 g/dL (12.9-16.9)
[2020-03-18] MEDS: Mesalamine 250 MG CAPSULE.ER PO SCH (12:33)
[2020-03-18] MEDS ORDERED: Clinimix E 5%-15% SOLUTION 2,000 ML IVC SCH ×3 (17:00)
[2020-03-18] MEDS: amLODIPine 5 MG TABLET PO SCH (20:09)
[2020-03-19] MEDS: Insulin LISPRO 300 UNITS/3 ML VIAL SUBQ SCH ×5 (04:03→20:34)
[2020-03-19] MEDS: Acetaminophen IV 1,000 MG/100 ML BAG IVPB SCH (06:02)
[2020-03-19] MEDS: Piperacillin/Tazobactam 3.375 GM in 0.9 % Sodium Chloride Mini Bag 100 ML IVPB SCH ×3 (06:02→21:14)
[2020-03-19 06:15] LABS: Hemoglobin 7.8 g/dL (12.9-16.9); Mean Corpuscular HGB Conc 32.5 g/dL (31.6-35.5); Mean Corpuscular Hemoglobin 28.6 pg (28.0-33.3); Mean Corpuscular Volume 87.9 fL (83.0-100.0); Mean Platelet Volume 12.7 fL (9.4-12.4); Red Blood Count 2.73 M/mcL (4.19-5.50); Red Cell Distribution Width 17.4 % (11.5-14.5); White Blood Count 18.4 K/mcL (4.3-11.1)
[2020-03-19 06:16] LABS: Platelet Count 60 K/mcL (140-400)
[2020-03-19 06:42] LABS: BUN/Creatinine Ratio 44 (6-26); Blood Urea Nitrogen 31 mg/dL (8-23); Calcium 9.1 mg/dL (8.6-10.3); Carbon Dioxide 20 mEq/L (23-29); Chloride 110 mEq/L (98-107); Glucose 90 mg/dL (70-105); Osmolality,Calculated 288 (280-300); Potassium 4.2 mEq/L (3.5-5.1); Sodium 136 mEq/L (136-145); eGFR For African Americans > 60 (> 60); eGFR For Non-African Americans > 60 (> 60)
[2020-03-19 06:44] LABS: Magnesium 1.8 mg/dL (1.6-2.6); Phosphorous 3.5 mg/dL (2.7-4.5)
[2020-03-19] MEDS: Mesalamine 250 MG CAPSULE.ER PO SCH (09:05)
[2020-03-19] MEDS: amLODIPine 5 MG TABLET PO SCH (09:06)
[2020-03-19] MEDS: lisinopriL 20 MG TABLET PO SCH (09:06)
[2020-03-19] MEDS: Finasteride 5 MG TABLET PO SCH (09:07)
[2020-03-19] MEDS: *HR* OxyCODONE/APAP 5/325 TABLET PO PRN ×2 (14:13→21:14)
[2020-03-19] MEDS: Ondansetron 4 MG/2 ML VIAL IVP PRN (21:23)
[2020-03-20] MEDS: Insulin LISPRO 300 UNITS/3 ML VIAL SUBQ SCH ×6 (01:37→20:38)
[2020-03-20] MEDS: *HR* OxyCODONE/APAP 5/325 TABLET PO PRN (03:43)
[2020-03-20] MEDS: Piperacillin/Tazobactam 3.375 GM in 0.9 % Sodium Chloride Mini Bag 100 ML IVPB SCH (05:13)
[2020-03-20 05:31] LABS: Hemoglobin 8.5 g/dL (12.9-16.9)
[2020-03-20 05:33] LABS: Hematocrit 26.4 % (37.5-50.1); Immature Platelets 8.1 % (1.1-6.1); Mean Corpuscular HGB Conc 32.2 g/dL (31.6-35.5); Mean Corpuscular Hemoglobin 28.7 pg (28.0-33.3); Mean Corpuscular Volume 89.2 fL (83.0-100.0); Mean Platelet Volume 11.9 fL (9.4-12.4); Red Blood Count 2.96 M/mcL (4.19-5.50); Red Cell Distribution Width 17.8 % (11.5-14.5); White Blood Count 11.8 K/mcL (4.3-11.1)
[2020-03-20 05:50] LABS: Platelet Count 73 K/mcL (140-400)
[2020-03-20 05:58] LABS: BUN/Creatinine Ratio 40 (6-26); Blood Urea Nitrogen 29 mg/dL (8-23); Carbon Dioxide 19 mEq/L (23-29); Chloride 110 mEq/L (98-107); Glucose 105 mg/dL (70-105); Osmolality,Calculated 294 (280-300); Potassium 3.3 mEq/L (3.5-5.1); Sodium 139 mEq/L (136-145); eGFR For African Americans > 60 (> 60); eGFR For Non-African Americans > 60 (> 60)
[2020-03-20] MEDS: Finasteride 5 MG TABLET PO SCH (08:49)
[2020-03-20] MEDS: Mesalamine 250 MG CAPSULE.ER PO SCH (08:49)
[2020-03-20] MEDS: lisinopriL 20 MG TABLET PO SCH (08:49)
[2020-03-20] MEDS: amLODIPine 5 MG TABLET PO SCH (08:49)
[2020-03-20] MEDS: Ondansetron 4 MG/2 ML VIAL IVP PRN (09:39)
[2020-03-20 12:51] LABS: Anisocytosis 1+ (Not Present); Lymphocytes # 1.7 K/mcL (0.6-4.6); Monocytes # 1.7 K/mcL (0.0-1.3); Neutrophils # 8.5 K/mcL (1.6-8.9); Platelet Estimate Marked Decrease (Normal); Poikilocytosis 1+ (Not Present)
[2020-03-20] MEDS: Mirtazapine 15 MG TABLET PO SCH (21:52)
[2020-03-21] MEDS: D5% in Water 1,000 ML IVC PRN ×2 (04:08→14:28)
[2020-03-21 04:53] LABS: BUN/Creatinine Ratio 39 (6-26); Blood Urea Nitrogen 28 mg/dL (8-23); Calcium 8.9 mg/dL (8.6-10.3); Carbon Dioxide 20 mEq/L (23-29); Chloride 114 mEq/L (98-107); Glucose 84 mg/dL (70-105); Osmolality,Calculated 301 (280-300); Potassium 2.8 mEq/L (3.5-5.1); Sodium 143 mEq/L (136-145); eGFR For African Americans > 60 (> 60); eGFR For Non-African Americans > 60 (> 60)
[2020-03-21] MEDS: Insulin LISPRO 300 UNITS/3 ML VIAL SUBQ SCH ×4 (07:43→21:13)
[2020-03-21] MEDS ORDERED: Potassium Chloride 40 MEQ, Lidocaine 1% 2 ML in 0.9 % Sodium Chloride 500 ML IVPB ONE ×2 (07:47→16:00)
[2020-03-21] MEDS ORDERED: Potassium Chloride Elixir 20 MEQ/15 ML UDC PO ONE (07:47)
[2020-03-21] MEDS: amLODIPine 5 MG TABLET PO SCH (10:21)
[2020-03-21] MEDS: lisinopriL 20 MG TABLET PO SCH (10:21)
[2020-03-21] MEDS: Mesalamine 250 MG CAPSULE.ER PO SCH (10:21)
[2020-03-21] MEDS: Finasteride 5 MG TABLET PO SCH (10:21)
[2020-03-21] MEDS: Mirtazapine 15 MG TABLET PO SCH (21:12)
[2020-03-22] MEDS: D5% in Water 1,000 ML IVC PRN (00:32)
[2020-03-22 05:49] LABS: Mean Corpuscular HGB Conc 31.7 g/dL (31.6-35.5); Mean Platelet Volume 11.8 fL (9.4-12.4)
[2020-03-22 05:51] LABS: Hematocrit 22.4 % (37.5-50.1); Hemoglobin 7.1 g/dL (12.9-16.9); Immature Platelets 6.3 % (1.1-6.1); Mean Corpuscular Hemoglobin 29.1 pg (28.0-33.3); Mean Corpuscular Volume 91.8 fL (83.0-100.0); Red Blood Count 2.44 M/mcL (4.19-5.50); Red Cell Distribution Width 17.6 % (11.5-14.5); White Blood Count 5.7 K/mcL (4.3-11.1)
[2020-03-22 06:00] LABS: Platelet Count 72 K/mcL (140-400)
[2020-03-22 06:07] LABS: BUN/Creatinine Ratio 28 (6-26); Blood Urea Nitrogen 17 mg/dL (8-23); Carbon Dioxide 19 mEq/L (23-29); Chloride 113 mEq/L (98-107); Glucose 97 mg/dL (70-105); Osmolality,Calculated 289 (280-300); Potassium 2.8 mEq/L (3.5-5.1); Sodium 139 mEq/L (136-145); eGFR For African Americans > 60 (> 60); eGFR For Non-African Americans > 60 (> 60)
[2020-03-22 06:27] LABS: Lymphocytes # 1.3 K/mcL (0.6-4.6); Neutrophils # 3.4 K/mcL (1.6-8.9); Platelet Estimate Decreased (Normal); Reactive Lymphocytes Present (Not Present)
[2020-03-22] MEDS: Mesalamine 250 MG CAPSULE.ER PO SCH (07:26)
[2020-03-22] MEDS: lisinopriL 20 MG TABLET PO SCH (07:26)
[2020-03-22] MEDS: amLODIPine 5 MG TABLET PO SCH (07:26)
[2020-03-22] MEDS: Finasteride 5 MG TABLET PO SCH (07:27)
[2020-03-22] MEDS ORDERED: Potassium Chloride 40 MEQ, Lidocaine 1% 2 ML in 0.9 % Sodium Chloride 500 ML IVPB ONE (07:34)
[2020-03-22] MEDS: Insulin LISPRO 300 UNITS/3 ML VIAL SUBQ SCH ×4 (07:37→20:14)
[2020-03-22] MEDS: Haloperidol Oral Conc 10 MG/5 ML UDC PO SCH ×2 (16:25→20:38)
[2020-03-22] MEDS: Mirtazapine 15 MG TABLET PO SCH (20:39)
[2020-03-22] MEDS: *HR* OxyCODONE/APAP 5/325 TABLET PO PRN (20:39)
[2020-03-22] MEDS: *HR* Dextrose 50 % in Water (Vial) 50 ML VIAL IVP PRN (20:39)
[2020-03-23] MEDS: *HR* Dextrose 50 % in Water (Vial) 50 ML VIAL IVP PRN ×3 (00:49→05:47)
[2020-03-23] MEDS ORDERED: Potassium Chloride 40 MEQ, Lidocaine 1% 2 ML in 0.9 % Sodium Chloride 500 ML IVPB ONE ×2 (01:00→07:47)
[2020-03-23 01:14] LABS: Mean Corpuscular Volume 91.2 fL (83.0-100.0)
[2020-03-23 01:17] LABS: Eosinophils % 0.2 %; Hematocrit 24.8 % (37.5-50.1); Hemoglobin 7.8 g/dL (12.9-16.9); Immature Granulocytes % 1.7 % (0-4); Lymphocytes # 0.6 K/mcL (0.6-4.6); Lymphocytes % 13.6 %; Mean Corpuscular HGB Conc 31.5 g/dL (31.6-35.5); Mean Corpuscular Hemoglobin 28.7 pg (28.0-33.3); Mean Platelet Volume 11.4 fL (9.4-12.4); Monocytes # 1.1 K/mcL (0.0-1.3); Monocytes % 25.5 %; Neutrophils # 2.4 K/mcL (1.6-8.9); Red Blood Count 2.72 M/mcL (4.19-5.50); Red Cell Distribution Width 17.5 % (11.5-14.5); White Blood Count 4.1 K/mcL (4.3-11.1)
[2020-03-23 01:22] LABS: Platelet Count 76 K/mcL (140-400)
[2020-03-23 01:26] LABS: BUN/Creatinine Ratio 22 (6-26); Blood Urea Nitrogen 12 mg/dL (8-23); Calcium 7.7 mg/dL (8.6-10.3); Carbon Dioxide 19 mEq/L (23-29); Chloride 113 mEq/L (98-107); Glucose 77 mg/dL (70-105); Osmolality,Calculated 287 (280-300); Potassium 2.8 mEq/L (3.5-5.1); Sodium 139 mEq/L (136-145); eGFR For African Americans > 60 (> 60); eGFR For Non-African Americans > 60 (> 60)
[2020-03-23] MEDS: Calcium Gluconate 1gm/50mL 1 GM/50 ML BAG IVPB SCH ×2 (02:14→03:34)
[2020-03-23] MEDS: D5% in Water 1,000 ML IVC PRN ×2 (05:47→21:41)
[2020-03-23] MEDS: Insulin LISPRO 300 UNITS/3 ML VIAL SUBQ SCH ×4 (07:36→21:29)
[2020-03-23] MEDS: Haloperidol Oral Conc 10 MG/5 ML UDC PO SCH ×3 (09:10→21:40)
[2020-03-23] MEDS: Mesalamine 250 MG CAPSULE.ER PO SCH (09:13)
[2020-03-23] MEDS: lisinopriL 20 MG TABLET PO SCH (09:14)
[2020-03-23] MEDS: amLODIPine 5 MG TABLET PO SCH (09:14)
[2020-03-23] MEDS: Finasteride 5 MG TABLET PO SCH (09:15)
[2020-03-23] MEDS: *HR* OxyCODONE/APAP 5/325 TABLET PO PRN ×2 (11:56→18:25)
[2020-03-23] MEDS: Mirtazapine 15 MG TABLET PO SCH (21:40)
[2020-03-24] MEDS: *HR* OxyCODONE/APAP 5/325 TABLET PO PRN (09:36)
[2020-03-24] MEDS: Finasteride 5 MG TABLET PO SCH (09:37)
[2020-03-24] MEDS: lisinopriL 20 MG TABLET PO SCH (09:37)
[2020-03-24] MEDS: Haloperidol Oral Conc 10 MG/5 ML UDC PO SCH ×3 (09:38→21:16)
[2020-03-24] MEDS: amLODIPine 5 MG TABLET PO SCH (09:44)
[2020-03-24] MEDS: Mesalamine 250 MG CAPSULE.ER PO SCH (09:45)
[2020-03-24] MEDS: Acetaminophen 325 MG TABLET PO PRN (13:40)
[2020-03-24] MEDS: Mirtazapine 15 MG TABLET PO SCH (21:14)
[2020-03-25] MEDS: D5% in Water 1,000 ML IVC PRN (05:44)
[2020-03-25] MEDS: amLODIPine 5 MG TABLET PO SCH (08:22)
[2020-03-25] MEDS: lisinopriL 20 MG TABLET PO SCH (08:22)
[2020-03-25] MEDS: Acetaminophen 325 MG TABLET PO PRN (08:23)
[2020-03-25] MEDS: Haloperidol Oral Conc 10 MG/5 ML UDC PO SCH ×3 (08:23→20:28)
[2020-03-25] MEDS: Mesalamine 250 MG CAPSULE.ER PO SCH (08:24)
[2020-03-25] MEDS: Finasteride 5 MG TABLET PO SCH (08:24)
[2020-03-25] MEDS: Mirtazapine 15 MG TABLET PO SCH (20:28)
[2020-03-26 04:41] LABS: Basophils % 0.2 %; Eosinophils % 0.2 %; Hematocrit 28.8 % (37.5-50.1); Hemoglobin 9.3 g/dL (12.9-16.9); Lymphocytes # 0.8 K/mcL (0.6-4.6); Lymphocytes % 15.6 %; Mean Corpuscular HGB Conc 32.3 g/dL (31.6-35.5); Mean Corpuscular Hemoglobin 29.2 pg (28.0-33.3); Mean Corpuscular Volume 90.3 fL (83.0-100.0); Monocytes # 1.3 K/mcL (0.0-1.3); Monocytes % 25.1 %; Platelet Count 104 K/mcL (140-400); Red Blood Count 3.19 M/mcL (4.19-5.50); Red Cell Distribution Width 18.3 % (11.5-14.5); Segmented Neutrophils % 57.9 %; White Blood Count 5.1 K/mcL (4.3-11.1)
[2020-03-26 04:55] LABS: BUN/Creatinine Ratio 17 (6-26); Blood Urea Nitrogen 9 mg/dL (8-23); Carbon Dioxide 21 mEq/L (23-29); Chloride 109 mEq/L (98-107); Glucose 88 mg/dL (70-105); Osmolality,Calculated 286 (280-300); Potassium 2.7 mEq/L (3.5-5.1); Sodium 139 mEq/L (136-145); eGFR For African Americans > 60 (> 60); eGFR For Non-African Americans > 60 (> 60)
[2020-03-26 05:00] LABS: Acanthocytes 1+ (Not Present); Anisocytosis 1+ (Not Present); Platelet Estimate Decreased (Normal); Poikilocytosis 1+ (Not Present)
[2020-03-26] MEDS ORDERED: Magnesium Sulfate 1 GM/102 ML PIGGYBACK IVPB ONE (07:46)
[2020-03-26] MEDS ORDERED: Potassium Chloride 40 MEQ, Lidocaine 1% 2 ML in 0.9 % Sodium Chloride 500 ML IVPB ONE ×2 (07:46→13:00)
[2020-03-26] MEDS: lisinopriL 20 MG TABLET PO SCH (09:40)
[2020-03-26] MEDS: Haloperidol Oral Conc 10 MG/5 ML UDC PO SCH ×2 (09:40→15:12)
[2020-03-26] MEDS: amLODIPine 5 MG TABLET PO SCH (09:43)
[2020-03-26] MEDS: Mesalamine 250 MG CAPSULE.ER PO SCH (09:43)
[2020-03-26] MEDS: Finasteride 5 MG TABLET PO SCH (09:43)
[2020-03-26 16:35] VITALS: BP 149/94
== END 2020-03-26 17:20 | DRG 329 ==
LOC: 3ANU → SUATTDRO 03-13 00:12 → ICNU 03-16 20:01 → 3ANU 03-18 17:19
PROVIDERS: ADMIT Internal Medicine; ATTEND Internal Medicine